=== PATIENT | male | born 1945 | race Caucasian/White ===

== ENCOUNTER → 2017-01-19 | Outpatient (CLI) | payer OTHER | LOC: BRMIMAGING 13:14 | PROVIDERS: ATTEND Internal Medicine Nephrology | DX: Z13.820 Encounter for screening for osteoporosis (principal); M85.80 Other specified disorders of bone density and structure, unspecified site; Z85.46 Personal history of malignant neoplasm of prostate ==

== ENCOUNTER 2017-01-23 11:20 | Emergency (ER) | payer OTHER ==
[2017-01-23 11:37] VITALS: TEMP 97.7
[2017-01-23 13:01] VITALS: RESP 16; O2SAT 94
[2017-01-23] MEDS ORDERED: TDAP ADULT 0.5 ML INJ (BOOSTRIX) IM ONE (13:22)
[2017-01-23 14:15] VITALS: BP 143/80; PULSE 72
--- NOTE | 2017-01-23 16:03 | EDPHY ---
H & P Time Seen by Provider: 01/23/17 12:50 HPI/ROS: This patient sustained a laceration to his left 2nd finger-index finger at home shortly prior to arrival while trimming bushes with sickle in his yd. He reports mild to moderate pain and moderate bleeding. He is on Coumadin is apprehensive about the bleeding associated with his Coumadin. He is accompanied by his -a nurse practitioner. ROS: Neuro: No numbness or tingling the affected finger. Musculoskeletal: No bony pain or difficulty moving the affected finger No other associated injuries. 5 point ROS is otherwise negative. Past Medical/Surgical History: His last tetanus was greater than 7 years ago He is on Coumadin for atrial fibrillation. He is on immunosuppression for kidney transplant. No other pertinent past medical history. Smoking Status: Former smoker Physical Exam: Physical Exam Vital signs are normal. General: No acute distress HEENT: Atraumatic. Eyes: Pupils equal and react to light. Extraocular motions are intact. Lungs: No respiratory distress. Cardiac: Brisk capillary refill is intact throughout. Pulses are 2+ and symmetric in the affected extremity. Skin: 3 cm triangle flap shaped full-thickness laceration to the radial aspect , proximal phalanx index finger. Subcutaneous tissues evident. No foreign bodies. No tendon injury. No rash or pallor. Neuro: Alert with no sensorimotor deficits in the affected finger. Constitutional: Initial Vital Signs Temperature (C) 36.5 C 01/23/17 11:20 Heart Rate 73 01/23/17 11:20 Respiratory Rate 18 01/23/17 11:20 Blood Pressure 157/91 H 01/23/17 11:20 O2 Sat (%) 99 01/23/17 11:20 O2 Delivery Mode Room Air Allergies/Adverse Reactions: bacitracin [From Neosporin] Allergy (Mild, Verified 01/22/15 06:00) Itching bacitracin zinc [From Neosporin] Allergy (Mild, Verified 01/22/15 06:00) Itching gramicidin D [From Neosporin] Allergy (Mild, Verified 01/22/15 06:00) Itching neomycin sulfate [From Neosporin] Allergy (Mild, Verified 01/22/15 06:00) Itching polymyxin B [From Neosporin] Allergy (Mild, Verified 01/22/15 06:00) Itching polymyxin B sulfate [From Neosporin] Allergy (Mild, Verified 01/22/15 06:00) Itching Sulfa (Sulfonamide Antibiotics) Allergy (Unknown, Verified 01/22/15 06:00) Unknown azathioprine [From Imuran] Allergy (Verified 12/29/15 11:09) Hives azathioprine sodium [From Imuran] Allergy (Verified 12/29/15 11:09) Hives doxycycline Allergy (Verified 12/29/15 11:09) Hives magnesium citrate Allergy (Verified 12/29/15 11:09) Anaphylaxis mycophenolate sodium [From Myfortic] Allergy (Verified 12/29/15 11:09) Hives NSAIDS (Non-Steroidal Anti-Inflamma Allergy (Verified 01/22/15 06:00) sodium phosphate,dibasic [From Fleet Enema] Allergy (Verified 12/29/15 11:09) Anaphylaxis sodium phosphate,monobasic [From Fleet Enema] Allergy (Verified 12/29/15 11:09) Anaphylaxis Home Medications: Medication Instructions Recorded Cyclobenzaprine HCl [Amrix] 30 mg PO DAILY18 01/22/15 DULoxetine [Cymbalta 60 MG (*)] 60 mg PO DAILY@02 01/22/15 Gabapentin [Gralise] 1,800 mg PO DAILY18 01/22/15 Lidocaine 5% [Lidoderm 5% Patch 2 - 3 patch TD DAILY PRN 01/22/15 (*)] Multivitamins [Multivitamin (*)] 1 each PO DAILY 01/22/15 Sirolimus [Rapamune 1 MG (*)] 3 mg PO DAILY06 01/22/15 Tacrolimus [Prograf] 2 mg PO DAILY 01/22/15 Tamsulosin HCl [Flomax 0.4 MG (*)] 0.4 mg PO DAILY@01/22/15 fentaNYL [Duragesic 100 MCG Patch 100 mcg TD Q48H 01/22/15 (*)] oxyCODONE IR [Oxycodone Ir (*)] 30 - 120 mg PO Q4H PRN 01/22/15 predniSONE 5 mg PO DAILY@09 01/22/15 Acetaminophen [Tylenol ES 500 mg 1,000 mg PO Q8 #0 tab 02/01/15 (*)] Cholecalciferol (Vitamin D3) 4,000 unit PO DAILY 12/25/15 [Vitamin D3] HYDROmorphone HCL [Dilaudid 2 mg 8 mg PO Q3 PRN 12/25/15 (*)] Tacrolimus [Prograf] 1 mg PO HS 12/25/15 Zolpidem Tartrate [Ambien 5MG (*)] 5 - 10 mg PO HS 12/25/15 Aspirin EC [Aspirin EC 325 mg (*)] 325 mg PO DAILY #21 tab 01/14/16 Ferrous Sulfate [Slow Fe 140 MG 140 mg PO DAILY #30 tab.er 01/14/16 (*)] Ondansetron Odt [Zofran Odt 4 mg 4 - 8 mg PO Q6 PRN #0 tab 01/14/16 (*)] traMADol [Ultram 50 mg (*)] 100 mg PO BID #0 tab 01/14/16 MDM/Departure - MDM Procedures: Digital block: After verbal consent, using a 50 50 mix of 0.5% Marcaine 2% plain lidocaine, 27 gauge needle, chlorhexidine scrub under sterile conditions- 3 injections were administered to the base of the affected finger, 8 mL with good effect. Patient tolerated this well. There were no complications. The wound is 3 cm, full-thickness, described physical exam. The wound was copiously irrigated with saline. The wound was explored for foreign bodies and none were found. The wound was prepped and draped in the normal sterile fashion. The edges were reapproximated using 4 0 Ethilon, 14 running sutures with good hemostasis and cosmesis. The patient tolerated the procedure well. There were no complications. Patient is placed in tube gauze we counseled regarding wound care. Medications Given: Discontinued Medications Diphtheria/Tetanus/Acell Pertussis (Boostrix) 0.5 ml IM .ONCE ONE Stop: 01/23/17 13:23 Last Admin: 01/23/17 13:30 Dose: 0.5 ml - Depart Disposition: Home, Routine, Self-Care Clinical Impression: Finger laceration Qualifiers: Encounter type: initial encounter Qualified Code(s): S61.219A - Laceration without foreign body of unspecified finger without damage to nail, initial encounter Instructions: Care For Your Stitches (ED), Laceration (ED), Finger Laceration ( ED) Additional Instructions: RETURN HERE IN 10-12 DAYS FOR SUTURE REMOVAL. MONITOR FOR SINGS OF INFECTION, RETURN HERE WITH ANY COMPLICATIONS. Referrals: David Celeste, [Primary Care Provider] - As per Instructions
== END 2017-01-23 13:40 | disposition home or self-care (01) ==
LOC: CED 11:20
PROC: 0HQGXZZ Repair Left Hand Skin, External Approach (ICD-10-PCS; principal; 2017-01-23)
DX: S61.211A Laceration without foreign body of left index finger without damage to nail, initial encounter (principal); Z87.891 Personal history of nicotine dependence; Z23 Encounter for immunization; Z79.82 Long term (current) use of aspirin; Z79.01 Long term (current) use of anticoagulants; W27.8XXA Contact with other nonpowered hand tool, initial encounter; Y92.009 Unspecified place in unspecified non-institutional (private) residence as the place of occurrence of the external cause

== ENCOUNTER → 2017-02-01 | Outpatient (CLI) | payer OTHER | LOC: CIMAGING 10:10 | PROVIDERS: ATTEND Surgery | DX: Z86.718 Personal history of other venous thrombosis and embolism (principal); N18.6 End stage renal disease; K44.9 Diaphragmatic hernia without obstruction or gangrene; Z94.0 Kidney transplant status; N28.1 Cyst of kidney, acquired; I25.10 Atherosclerotic heart disease of native coronary artery without angina pectoris; Z92.3 Personal history of irradiation; Z79.899 Other long term (current) drug therapy | CPT/HCPCS: 71250-PO; 74176-PO ==

== ENCOUNTER → 2017-02-24 | Outpatient (CLI) | payer OTHER | LOC: FIMAGING 10:32 | PROVIDERS: ATTEND Internal Medicine Nephrology | DX: R79.89 Other specified abnormal findings of blood chemistry (principal); Z94.0 Kidney transplant status ==

== ENCOUNTER 2017-02-25 08:10 | Outpatient (CLI) | payer OTHER ==
[2017-02-25] MEDS ORDERED: LIDOCAINE 1% 300 MG/30 ML SDV ONE (08:21)
[2017-02-25] MEDS ORDERED: hydrALAZINE 20 MG/ML VIAL IVP PRN (09:15)
[2017-02-25] MEDS ORDERED: NS 1,000 ML IV SCH (09:15)
[2017-02-25 09:18] LABS: % IMMATURE GRANULYOCYTES 0.4 % (0.0-1.1); ABSOLUTE IMMATURE GRANULOCYTES 0.03 10^3/uL (0.00-0.10); ADD DIFF? NO; ADD MORPH? NO; ADD SCAN? NO; ATYPICAL LYMPHOCYTE FLAG 0 (0-99); FRAGMENT RBC FLAG 0 (0-99); HEMATOCRIT 36.7 % (40.0-51.0); HEMOGLOBIN 12.3 g/dL (13.7-17.5); LEFT SHIFT FLG 0 (0-99); LIPEMIA HEMOLYSIS FLAG 80 (0-99); MEAN CELL HEMOGLOBIN 28.8 pg (27.9-34.1); MEAN CELL HEMOGLOBIN CONCENTR. 33.5 g/dL (32.4-36.7); MEAN CELL VOLUME 85.9 fL (81.5-99.8); MEAN PLATELET VOLUME 8.7 fL (8.7-11.7); PLATELET CLUMPS FLAG 0 (0-99); PLATELET COUNT 206 10^3/uL (150-400); RED BLOOD CELL COUNT 4.27 10^6/uL (4.40-6.38); RED CELL DISTRIBUTION WIDTH 13.3 % (11.5-15.2)
[2017-02-25 09:24] LABS: APTT 26.1 SEC (23.0-38.0); INR 1.5 (0.83-1.16); PROTIME(PATIENT) 18.1 SEC (12.0-15.0)
[2017-02-25 09:39] LABS: ANION GAP 10 mEq/L (8-16); CALCIUM 9.4 mg/dL (8.5-10.4); CARBON DIOXIDE 23 mEq/l (22-31); CHLORIDE 100 mEq/L (97-110); GLOMERULAR FILTRATION RATE 21; GLUCOSE 92 mg/dL (70-100); SODIUM 133 mEq/L (134-144)
[2017-02-25] MEDS ORDERED: fentaNYL 100 MCG/2 ML INJ ONE (09:43)
[2017-02-25] MEDS ORDERED: MIDAZOLAM 2 MG/2 ML VIAL ONE (09:43)
[2017-02-25 12:59] LABS: HEMATOCRIT 38.4 % (40.0-51.0); HEMOGLOBIN 13.1 g/dL (13.7-17.5)
[2017-02-25 14:45] LABS: HEMATOCRIT 37.3 % (40.0-51.0); HEMOGLOBIN 12.5 g/dL (13.7-17.5)
[2017-02-25 16:37] VITALS: BP 119/87; O2SAT 93
[2017-02-25 16:49] LABS: HEMATOCRIT 38.4 % (40.0-51.0)
== END 2017-02-25 17:23 | disposition home or self-care (01) ==
LOC: FIMAGING 08:10
PROVIDERS: ATTEND Internal Medicine Nephrology
PROC: 0TB03ZX Excision of Right Kidney, Percutaneous Approach, Diagnostic (ICD-10-PCS; principal; 2017-02-25 10:30)
DX: N28.9 Disorder of kidney and ureter, unspecified (principal); Z94.0 Kidney transplant status; Z79.52 Long term (current) use of systemic steroids
CPT/HCPCS: 50200; 99152; J2250; J3010

== ENCOUNTER → 2018-02-08 | Outpatient (CLI) | payer OTHER, MEDICARE | LOC: FIMAGING 09:45 | PROVIDERS: ATTEND Internal Medicine Nephrology | DX: Z13.820 Encounter for screening for osteoporosis (principal); M85.89 Other specified disorders of bone density and structure, multiple sites; Z92.241 Personal history of systemic steroid therapy ==

== ENCOUNTER → 2018-02-27 | Outpatient (CLI) | payer OTHER, MEDICARE | LOC: CIMAGING 15:29 | PROVIDERS: ATTEND Internal Medicine Nephrology | DX: N13.30 Unspecified hydronephrosis (principal); Z94.0 Kidney transplant status | CPT/HCPCS: 36415-PO; 76770-PO; 80069-PO ==

== ENCOUNTER → 2018-03-13 | Outpatient (CLI) | payer OTHER, MEDICARE | LOC: FIMAGING 07:46 | PROVIDERS: ATTEND Internal Medicine Nephrology | DX: I87.8 Other specified disorders of veins (principal); N28.1 Cyst of kidney, acquired; N26.1 Atrophy of kidney (terminal); Z94.0 Kidney transplant status | CPT/HCPCS: C8918 ==